=== PATIENT | female | born 2005 | race Two or more races ===

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

== ENCOUNTER 2024-11-10 13:08 | Emergency (ER) | payer OTHER ==
[~2024-11-10] VITALS: Ht 170.2 cm; Wt 102.5 kg
[2024-11-10] MEDS ORDERED: METFORMIN HCL500 M3 PO (13:34)
[2024-11-10] MEDS ORDERED: COZAAR25 MG PO (13:34)
[2024-11-10] MEDS ORDERED: KETOROLAC TROMETHAMINE 15 MG VIAL IV SCH (13:53)
[2024-11-10] MEDS ORDERED: KETOROLAC TROMETHAMINE 30 MG VIAL ONE ×2 (13:58→18:34)
[2024-11-10] MEDS ORDERED: CEFTRIAXONE SODIUM 2,000 MG VIAL ONE (13:58)
[2024-11-10] MEDS ORDERED: 0.9 % SODIUM CHLORIDE 1,000 ML IV SCH ×2 (14:00→15:00)
[2024-11-10] MEDS ORDERED: CEFTRIAXONE SODIUM 2,000 MG VIAL IV ONE (14:00)
[2024-11-10 14:16] LABS: BASO % 0.1 % (0.1-1.2); HEMATOCRIT 37.7 % (34.1-44.9); HEMOGLOBIN 11.8 g/dL (11.2-15.7); LYMPH # 1.48 (1.18-3.74); LYMPH % 11.9 % (19.3-53.1); MEAN CORPUSCULAR HEMOGLOBIN 22.4 pg (25.6-32.2); MONO # 0.54 (0.24-0.82); MONO % 4.4 % (4.7-12.5); NEUT # 10.31 (1.56-6.13); NEUT % 83.2 % (34.0-71.1); PLATELET COUNT 403 K/uL (163-369); RED BLOOD COUNT 5.27 M/uL (3.93-5.22); RED CELL DISTRIBUTION WIDTH 14.6 % (11.6-14.4)
[2024-11-10 14:24] LABS: URINE APPEARANCE Clear; URINE BILIRRUBIN Negative (NEGATIVE); URINE BLOOD Negative; URINE COLOR Yellow; URINE GLUCOSE Negative (NEGATIVE); URINE KETONE Negative (NEGATIVE); URINE LEUKOCYTE Trace; URINE NITRATE Negative; URINE PROTEIN Negative (NEGATIVE); URINE UROBILINOGEN 0.2 E.U./dl
[2024-11-10 14:27] LABS: URINE BACTERIA 620.4 uL (0.0-1933); URINE WBC 17.8 uL (0.0-23.2)
[2024-11-10 14:33] LABS: URINE CAST 0.44 uL (0.0-1.40)
[2024-11-10 14:42] LABS: ALBUMIN 3.8 gm/dL (3.4-5.0); ALKALINE PHOSPHATASE 88 U/L (50-136); ALT/SGPT 21 U/L (12-78); ANION GAP 11 (10.0-20.0); AST/SGOT 15 U/L (15-37); BILIRUBIN TOTAL 0.14 mg/dL (0.3-1.2); BLOOD UREA NITROGEN 14 mg/dL (7-18); BUN CREA RATIO 12 (7.0-25.0); CARBON DIOXIDE 24 mEq/L (21-32); CHLORIDE 110 mmol/L (98-107); CREATININE SERUM 1.16 mg/dL (0.55-1.02); GFR 59.56; GLOBULINA 4.6 G/DL (2.4-3.5); GLUCOSE FASTING 136 mg/dL (65-100); HCG QUANTITATIVE < 1 mUI/mL (1-3); OSMOLALITY SERUM 284 MOSM/KG (275-295); POTASSIUM 4.02 mEq/L (3.5-5.1); SODIUM 141 mmol/L (136-145); TOTAL PROTEIN 8.4 gm/dL (6.4-8.2)
== END 2024-11-10 21:20 | disposition home or self-care (01) ==
LOC: ER 13:08 → EMR PED 13:17 → ER 13:17 → EMR PED 21:20
PROVIDERS: General Practice
DX: N39.0 Urinary tract infection, site not specified (principal); R10.9 Unspecified abdominal pain

== ENCOUNTER 2025-03-28 17:34 | Emergency (ER) | payer OTHER ==
[~2025-03-28] VITALS: Ht 167.6 cm; Wt 105.2 kg
[~2025-03-28 17:34] MED LIST: COZAAR25 MG PO; METFORMIN HCL500 M3 PO
[2025-03-28] MEDS ORDERED: ZYRTEC10 MG PO (18:17)
[2025-03-28 18:56] VITALS: BP 90/60; O2SAT 100
== END 2025-03-28 18:56 | disposition home or self-care (01) ==
LOC: ER 17:34 → EMR PED 17:52 → ER 17:52
DX: R21 Rash and other nonspecific skin eruption (principal)